=== PATIENT | female | born 2000 | race Caucasian/White ===

== ENCOUNTER 2020-08-25 08:33 | Emergency (ER) | payer SELFPAY ==
[~2020-08-25] VITALS: Ht 152.4 cm; Wt 50.0 kg
[~2020-08-25 08:33] MED LIST: AMOXICILLIN500 MG PO; CEPHALEXIN500 MG PO; HYDROXYZ H10 MG/5 ML OR; MOTRIN800 MG PO; NO HOME MEDS; TYLENOL & COD12.5 ML OR
[2020-08-25 09:31] LABS: HEMATOCRIT 42.3 % (37.0-47.0); IMMATURE GRANULOCYTES 0.3 % (0.0-5.0); MEAN CELL VOLUME 89.2 fL CALC (80.0-100.0); MEAN CORPUSCULAR HGB 29.5 pG CALC (26.0-32.0); MEAN CORPUSCULAR HGB CONC 33.1 g/dL CAL (32.0-36.0); NEUT# 4.61 thou/uL (2.00-7.15); RED BLOOD COUNT 4.74 mill/uL (4.20-5.60)
[2020-08-25 09:51] LABS: ALKALINE PHOSPHATASE 59 u/l (38-126); ANION GAP 15 (6-22 (CALC)); BUN 7 mg/dL (7-17); BUN/CREATININE RATIO 14 (12-20 (CALC)); CARBON DIOXIDE 24 mmol/l (22-30); CHLORIDE 102 mmol/l (95-108); CREATININE 0.5 mg/dL (0.5-1.0); GFR > 60 ML/MIN (>=60 (CALC)); GFR FOR AFR.AMER. > 60 ML/MIN (>=60 (CALC)); POTASSIUM 4.1 mmol/l (3.5-5.1); SGOT/AST 22 u/l (14-36); SODIUM 136 mmol/l (137-146); TOTAL PROTEIN 8.3 g/dL (6.3-8.2)
[2020-08-25 10:00] LABS: BILIRUBIN, TOTAL 0.8 mg/dL (0.0-1.4)
[2020-08-25 10:12] LABS: URINE BILIRUBIN - DIPSTICK NEGATIVE (NEGATIVE); URINE BLOOD DIPSTICK TRACE-LYSED (NEGATIVE); URINE COLOR YELLOW; URINE GLUCOSE - DIPSTICK NEGATIVE (NEGATIVE); URINE KETONE 40 mg/dL (NEGATIVE); URINE LEUK ESTERASE NEGATIVE (Negative); URINE NITRITE - DIPSTICK NEGATIVE (Negative); URINE PROTEIN - DIPSTICK 100 mg/dL (NEG-TRACE); URINE UROBILINOGEN - DIPSTICK 0.2 E.U./dL (0.2)
[2020-08-25 10:16] LABS: URINE CLARITY SL CLOUDY; URINE RBC 0-2 RBC/hpf (0-5)
[2020-08-25 10:17] LABS: URINE EPITHELIAL CELLS MODERATE EPI/hpf (0-FEW); URINE MUCUS FEW hpf (NONE-FEW)
[2020-08-25 10:34] LABS: BETA-HCG, QUANT(RESULT NUMBER) 21582 mIU/mL
[2020-08-25] MEDS ORDERED: PRENATAL MULTI1 CAP PO (12:06)
[2020-08-25] MEDS ORDERED: ZOFRAN4 MG/TAB PO (12:06)
[2020-08-25 12:23] VITALS: BP 120/64
== END 2020-08-25 12:23 | disposition home or self-care (01) | DRG 833 ==
LOC: ED 08:33
PROVIDERS: Student in an Organized Health Care Education/Training Program
DX: O21.9 Vomiting of pregnancy, unspecified (principal); Z3A.01 Less than 8 weeks gestation of pregnancy

== ENCOUNTER 2023-08-19 10:13 | Emergency (ER) | payer OTHER ==
[~2023-08-19] VITALS: Ht 152.4 cm; Wt 49.0 kg
[2023-08-19] VITALS (17 sets, daily range): BP systolic 106–133; BP diastolic 64–80
[~2023-08-19 10:13] MED LIST changes: +PRENATAL MULTI1 CAP PO; +ZOFRAN4 MG/TAB PO
[2023-08-19 10:43] LABS: BASO% 0.7 % (0-3); EOS% 1.6 % (0-8); HEMATOCRIT 42.3 % (37.0-47.0); HEMOGLOBIN 13.7 g/dl (12.0-16.0); IMMATURE GRANULOCYTES 0.1 % (0.0-5.0); LYMPH% 31.7 % (15-41); MEAN CORPUSCULAR HGB 29.8 pG CALC (26.0-32.0); MEAN CORPUSCULAR HGB CONC 32.4 g/dL CAL (32.0-36.0); MONO% 8.2 % (2-13); NEUT% 57.7 % (42-76); RED BLOOD COUNT 4.6 mill/uL (4.20-5.60); RED CELL DISTRI WIDTH 13.4 % (11.5-15.5)
[2023-08-19 11:05] LABS: ALBUMIN 4.7 g/dL (3.2-5.0); ALKALINE PHOSPHATASE 57 u/l (38-126); ANION GAP 12 (6-22 (CALC)); BUN 12 mg/dL (7-17); BUN/CREATININE RATIO 19 (12-20 (CALC)); CARBON DIOXIDE 24 mmol/l (22-30); CHLORIDE 106 mmol/l (95-108); CREATININE 0.6 mg/dL (0.5-1.0); GFR FOR AFR.AMER. > 60 ML/MIN (>=60 (CALC)); GFR OTHER RACES > 60 ML/MIN (>=60 (CALC)); LIPASE 36 u/l (23-300); POTASSIUM 3.7 mmol/l (3.5-5.1); SGOT/AST 32 u/l (14-36); SODIUM 138 mmol/l (137-146); TOTAL PROTEIN 7.8 g/dL (6.3-8.2)
[2023-08-19 11:39] LABS: URINE BILIRUBIN - DIPSTICK Negative (NEGATIVE); URINE BLOOD DIPSTICK Small (NEGATIVE); URINE GLUCOSE - DIPSTICK Negative (NEGATIVE); URINE KETONE Trace mg/dL (NEGATIVE); URINE LEUK ESTERASE Negative (NEGATIVE); URINE NITRITE - DIPSTICK Negative (Negative); URINE PROTEIN - DIPSTICK Negative (NEG-TRACE); URINE SPECIFIC GRAVITY 1.025; URINE UROBILINOGEN - DIPSTICK 0.2 E.U./dL (0.2)
[2023-08-19 11:40] LABS: URINE COLOR Yellow
[2023-08-19 11:56] LABS: URINE RBC 0-2 RBC/hpf (0-5); URINE SQUAMOUS EPITHELIAL CELL FEW EPI/hpf (0-FEW)
[2023-08-19 11:58] LABS: URINE WBC 0-2 WBC/hpf (0-5)
[2023-08-19 11:59] LABS: URINE CRYSTALS FEW lpf
[2023-08-19] MEDS ORDERED: TAMSULOSIN0.4 MG PO (13:49)
[2023-08-19] MEDS ORDERED: LORTAB 5/3255 MG PO (13:49)
[2023-08-19] MEDS ORDERED: TRAMADOL HYDROC50 M1 PO (13:49)
[2023-08-19] MEDS ORDERED: TORADOL PO (13:51)
== END 2023-08-19 14:28 | disposition home or self-care (01) ==
LOC: ED 10:13
PROVIDERS: Family Medicine
DX: R10.31 Right lower quadrant pain (principal)
CPT/HCPCS: Q9967